=== PATIENT | male | born 1970 | race Caucasian/White ===

== ENCOUNTER 2017-02-15 20:10 | Emergency (ER) | payer SELFPAY ==
[~2017-02-15] VITALS: Ht 182.9 cm; Wt 84.6 kg
[2017-02-15] MEDS ORDERED: OXYcodone/APAP 10/325MG TABLET ONE (22:14)
[2017-02-15] MEDS ORDERED: OXYcodone/APAP 10/325MG TABLET PO ONE (22:30)
[2017-02-15 23:47] VITALS: BP 119/80
== END 2017-02-15 23:49 | disposition home or self-care (01) ==
LOC: ED 23:43
DX: K40.20 Bilateral inguinal hernia, without obstruction or gangrene, not specified as recurrent (principal)
CPT/HCPCS: 76857; 81001; 99285

== ENCOUNTER 2017-03-25 21:25 | Emergency (ER) | payer MEDICAID ==
[~2017-03-25] VITALS: Ht 182.9 cm; Wt 93.5 kg
[2017-03-25 21:32] VITALS: BP 115/75
[2017-03-25] MEDS ORDERED: MORPHINE SULFATE 4 MG/ML, 1ML ONE (22:11)
[2017-03-25] MEDS ORDERED: ONDANSETRON 2MG/ML, 2ML ONE (22:11)
[2017-03-25 22:26] LABS: BLOOD UREA NITROGEN 14 mg/dL (7-18)
[2017-03-25] MEDS ORDERED: SODIUM CHLORIDE FLUSH 10ML SYR IVF ONE (22:30)
[2017-03-25] MEDS ORDERED: ONDANSETRON 2MG/ML, 2ML IVPush ONE (22:30)
[2017-03-25] MEDS ORDERED: MORPHINE SULFATE 4 MG/ML, 1ML IVPush PRN (22:30)
[2017-03-25] MEDS ORDERED: SODIUM CHLORIDE 0.9% 1,000ML IVBOLUS ONE (22:30)
[2017-03-25] MEDS ORDERED: OMNIPAQUE 350 MG/ML, 100ML BOTTLE ONE (22:46)
== END 2017-03-25 23:21 | disposition home or self-care (01) ==
LOC: ED 23:15
DX: K40.20 Bilateral inguinal hernia, without obstruction or gangrene, not specified as recurrent (principal)
CPT/HCPCS: 36415; 74177; 80048; 82040; 85025; 96361; 96374; 96375; 99285; J2405; J7030; Q9967

== ENCOUNTER 2017-10-28 09:00 | Emergency (ER) | payer MEDICAID ==
[~2017-10-28] VITALS: Ht 182.9 cm; Wt 87.5 kg
[2017-10-28] MEDS ORDERED: KETOROLAC 30 MG/1 ML IM ONE (09:30)
[2017-10-28] MEDS ORDERED: KETOROLAC 30 MG/1 ML ONE (09:54)
[2017-10-28 11:08] VITALS: BP 135/86
== END 2017-10-28 11:11 | disposition home or self-care (01) ==
LOC: ED 10:19
DX: S39.012A Strain of muscle, fascia and tendon of lower back, initial encounter (principal); M71.551 Other bursitis, not elsewhere classified, right hip; X58.XXXA Exposure to other specified factors, initial encounter; Y93.89 Activity, other specified; Y92.89 Other specified places as the place of occurrence of the external cause; Y99.8 Other external cause status
CPT/HCPCS: 72110; 73502; 96372; 99284; J1885

== ENCOUNTER 2018-03-14 13:32 | Emergency (ER) | payer MEDICAID ==
[~2018-03-14] VITALS: Ht 182.9 cm; Wt 78.1 kg
[2018-03-14 15:37] LABS: BASOPHILS # (AUTO) 0.06 x10^3/uL (0-0.1); BASOPHILS % (AUTO) 1 % (0-1); EOSINOPHILS # (AUTO) 0.12 x10^3/uL (0-0.4); EOSINOPHILS % (AUTO) 2 % (1-7); LYMPHOCYTES # (AUTO) 1.87 x10^3/uL (1-3.4); LYMPHOCYTES % (AUTO) 24 % (22-44); MD NO; MEAN CORPUSCULAR HEMOGLOBIN 30.4 pg (27.5-34.5); MEAN CORPUSCULAR HGB CONC 33.4 g/dL (33.2-36.2); MEAN CORPUSCULAR VOLUME 91.1 fL (81-97); MEAN PLATELET VOLUME 7.7 fL (7.4-10.4); MONOCYTES # (AUTO) 0.41 x10^3/uL (0.2-0.8); MONOCYTES % (AUTO) 5 % (2-9); NEUTROPHILS # (AUTO) 5.32 x10^3/uL (1.8-6.8); NEUTROPHILS % (AUTO) 68 % (42-75); PLATELET COUNT 265 x10^3/uL (130-400); RED BLOOD COUNT 4.56 x10^6/uL (4.38-5.82); RED CELL DISTRIBUTION WIDTH 13.9 % (9.4-14.8)
[2018-03-14 15:45] LABS: ANION GAP 7 mmol/L (5-15); CALCIUM 8.6 mg/dL (8.5-10.1); CHLORIDE 110 mmol/L (98-107); CREATININE 0.84 mg/dL (0.7-1.3)
[2018-03-14 16:25] LABS: MICROSCOPIC NOT IND
[2018-03-14 16:27] LABS: CULTURE INDICATED? NO
[2018-03-14] MEDS ORDERED: KETOROLAC 30 MG/1 ML ONE (16:54)
[2018-03-14 16:59] VITALS: BP 115/83
[2018-03-14] MEDS ORDERED: KETOROLAC 60 MG/2 ML IM ONE (17:00)
== END 2018-03-14 17:08 | disposition home or self-care (01) ==
LOC: ED 16:05
DX: K40.91 Unilateral inguinal hernia, without obstruction or gangrene, recurrent (principal); M13.10 Monoarthritis, not elsewhere classified, unspecified site
CPT/HCPCS: 36415; 73502; 76857; 80048; 81003; 85025; 96372; 99285; J1885